=== PATIENT | female | born 1985 | race Caucasian/White ===

== ENCOUNTER → 2018-12-02 | Outpatient (REF) | LOC: M LAB LCGH 10:42 | PROVIDERS: ATTEND Obstetrics & Gynecology Reproductive Endocrinology | DX: Z13.0 Encounter for screening for diseases of the blood and blood-forming organs and certain disorders involving the immune mechanism (principal) ==

== ENCOUNTER → 2019-01-01 | Outpatient (REF) | LOC: M LAB LCGH 11:14 | PROVIDERS: ATTEND Obstetrics & Gynecology Reproductive Endocrinology | DX: Z02.89 Encounter for other administrative examinations (principal) ==

== ENCOUNTER → 2019-02-01 | Outpatient (REF) | LOC: M LAB REF 12:47 | PROVIDERS: ATTEND Obstetrics & Gynecology Reproductive Endocrinology | DX: Z00.00 Encounter for general adult medical examination without abnormal findings (principal) ==

== ENCOUNTER → 2019-03-05 | Outpatient (REF) | LOC: M LAB LCGH 11:07 | PROVIDERS: ATTEND Obstetrics & Gynecology Reproductive Endocrinology | DX: Z13.89 Encounter for screening for other disorder (principal) ==

== ENCOUNTER → 2019-05-03 | Outpatient (REF) | LOC: M LAB LCGH 11:16 | PROVIDERS: ATTEND Obstetrics & Gynecology Reproductive Endocrinology | DX: E28.0 Estrogen excess (principal) ==

== ENCOUNTER → 2019-07-29 | Outpatient (REF) | LOC: M LAB LCGH 11:12 | PROVIDERS: ATTEND Obstetrics & Gynecology Reproductive Endocrinology | DX: E28.0 Estrogen excess (principal) ==

== ENCOUNTER → 2019-11-05 | Outpatient (REF) | payer BC | LOC: M LAB LCGH 11:08 | PROVIDERS: ATTEND Obstetrics & Gynecology Reproductive Endocrinology | DX: E28.0 Estrogen excess (principal) ==

== ENCOUNTER → 2019-11-05 | Outpatient (REF) | LOC: M LAB LCGH 13:42 | PROVIDERS: ATTEND Obstetrics & Gynecology Reproductive Endocrinology | DX: E28.0 Estrogen excess (principal) ==

== ENCOUNTER → 2019-11-17 | Outpatient (REF) | LOC: M LAB LCGH 11:25 → M LAB REF 11:25 | PROVIDERS: ATTEND Obstetrics & Gynecology Reproductive Endocrinology | DX: E28.0 Estrogen excess (principal) ==